=== PATIENT | male | born 1995 | race Caucasian/White ===

== ENCOUNTER 2017-11-09 22:15 | Emergency (ER) | payer MEDICAID ==
[~2017-11-09] VITALS: Ht 170.2 cm; Wt 63.5 kg
[2017-11-09 22:19] VITALS: BP_SYST 130
[2017-11-09 22:41] VITALS: BP_SYST 130
== END 2017-11-09 22:41 | disposition home or self-care (01) ==
LOC: SED 22:15
DX: L20.9 Atopic dermatitis, unspecified (principal); Z88.0 Allergy status to penicillin
CPT/HCPCS: 99283